=== PATIENT | female | born 1975 | race Caucasian/White ===

== ENCOUNTER 2019-03-12 05:48 | Day surgery (SDC) | payer MEDICAID ==
[2019-03-02 14:45] LABS: BASOPHILS # (AUTO) 0.1 X10'3 (0-0.2); BASOPHILS % (AUTO) 0.8 % (0-1); EOSINOPHILS # (AUTO) 0.2 X10'3 (0-0.9); EOSINOPHILS % (AUTO) 2.2 % (0-6); LYMPHOCYTES # (AUTO) 2.4 X10'3 (1.1-4.8); LYMPHOCYTES % (AUTO) 26.3 % (21-51); MEAN CORPUSCULAR HGB CONC 33.4 g/dL (33.0-36.5); MEAN CORPUSCULAR VOLUME 86.9 FL (78-98); MEAN PLATELET VOLUME 8.7 FL (7.4-10.4); MONOCYTES # (AUTO) 0.7 X10'3 (0-0.9); NEUTROPHILS # (AUTO) 5.7 X10'3 (1.8-7.7); NEUTROPHILS % (AUTO) 62.7 % (42-75); PRE OP HEMATOCRIT 41.3 % (35.0-45.0); PRE OP HEMOGLOBIN 13.8 g/dL (12.0-16.0); PRE OP PLATELET COUNT 349 X10'3 (140-440); RED BLOOD COUNT 4.75 X10'6 (4.20-5.60); RED CELL DISTRIBUTION WIDTH 15.9 % (11.5-14.5)
[2019-03-02 14:50] LABS: ALBUMIN 3.6 G/DL (3.4-5.0); ALKALINE PHOSPHATASE 74 IU/L (46-116); BLOOD UREA NITROGEN 17 MG/DL (7-18); BUN/CREATININE RATIO 19.5 (6.6-38.0); CALCIUM 8.8 MG/DL (8.5-10.1); CHLORIDE 102 MMOL/L (99-107); CREATININE 0.87 MG/DL (0.40-0.90); PRE OP ALT 20 U/L (30-65); PRE OP ANION GAP 9 (8-16); PRE OP AST 15 U/L (10-37); PRE OP BILIRUB, TOTAL 0.2 MG/DL (0.0-1.0); PRE OP GLUCOSE 88 MG/DL (70-104); PRE OP SODIUM 137 MMOL/L (135-145); TOTAL CARBON DIOXIDE 25.7 MMOL/L (24-32); TOTAL PROTEIN 7.1 G/DL (6.4-8.2); eGFR 71 ML/MIN
[~2019-03-12] VITALS: Ht 165.1 cm; Wt 90.7 kg
[~2019-03-12 05:48] MED LIST: ALBU18HF2 INH; ASPI-144 PO; CLON-527 PO; GABA600T13 PO; MELA3TAB PO; albuterol 2.5 MG/3 ML nebule NEB ONE; ceFAZolin 2gm in dextrose, iso 100 ML IV ONE; famotidine 20mg tablet PO ONE; ringers solution, lacted 1,000 ML IV SCH
[2019-03-12 06:00] VITALS: BP 121/76
[2019-03-12] MEDS ORDERED: LIDOcaine 1% (10mg/ml) 2ml vial ONE (06:29)
[2019-03-12] MEDS ORDERED: BUPIVAcaine/PF 2.5mg/ml (0.25%) 10ml vial ONE (06:36)
[2019-03-12] MEDS ORDERED: LIDOcaine 0.5% (5mg/ml) 50ml vial ONE (07:25)
[2019-03-12] MEDS ORDERED: fentaNYL/PF 50MCG/1 ML 2ML syringe ONE ×2 (07:28→07:44)
[2019-03-12] MEDS ORDERED: midazolam 2 mg/2 ml injection ONE (07:29)
[2019-03-12] MEDS ORDERED: propofol inj 20 ML IV ONE (07:54)
[2019-03-12 07:58] VITALS: BP 131/84
--- NOTE | 2019-03-12 07:58 | NUR ---
Received from OR via [facility] , accompanied by Anesthesiologist BEVERLY and report given by Anesthesiolgist. KPATIENT WITH 20G PIV IN LEFT UE RUNNING LRA T 100. DENIES PAIN AT THIS TIME. VSS. RIGHT WRIST DRESSING IS CDI. NO DRAINAGE PRESENT. PATIENT WITH - SENSATION 2' NERVE BLOCK. ICE DONNED. Addendum: 03/12/19 at 0809 by Wesley Barfield RN, RN Amended: Links added.
[2019-03-12] MEDS ORDERED: ringers solution, lacted 1,000 ML IV SCH (08:01)
[2019-03-12] MEDS ORDERED: meperidine/PF 25mg/ml syringe IV PRN ×2 (08:05)
[2019-03-12] MEDS ORDERED: ondansetron/PF 4mg/2ml inj IV PRN (08:05)
[2019-03-12 08:08] VITALS: BP 131/88
[2019-03-12 08:18] VITALS: BP 108/78
--- NOTE | 2019-03-12 08:28 | NUR ---
ALL DC CRITERIA HAS BEEN MET. IV TAKEN OUT WITHOUT COMPLICATIONS. ALL INSTRUCTIONS COVERED AND ALL QUESTIONS ANSWERED. DRESSINGS CDI. OUT VIA WHEELCHAIR TO PERSONAL VEHICLE WHERE PATIENT WAS SECURED IN AND DRIVEN HOME BY FAMILY. ICE SENT WITH PATIENT FOR RIGHT WRIST. Addendum: 03/12/19 at 0835 by Wesley Barfield RN, RN Amended: Links added.
== END 2019-03-12 08:28 | disposition home or self-care (01) ==
LOC: PAS 05:48
PROVIDERS: ATTEND Orthopaedic Surgery Hand Surgery
DX: G56.01 Carpal tunnel syndrome, right upper limb (principal); F17.210 Nicotine dependence, cigarettes, uncomplicated; F41.8 Other specified anxiety disorders; J45.909 Unspecified asthma, uncomplicated; Z72.89 Other problems related to lifestyle; Z88.8 Allergy status to other drugs, medicaments and biological substances; Z79.899 Other long term (current) drug therapy; Z88.6 Allergy status to analgesic agent; Z98.51 Tubal ligation status
CPT/HCPCS: 29848; 36415; 80053; 82948; 85025; J0690; J2001; J2250; J2704; J3010; J3490; A6449; A7000; J7120